=== PATIENT | male | born 1960 | race Hispanic/Latino ===

== ENCOUNTER 2021-01-21 11:39 | Outpatient (CLI) | payer OTHER ==
[2021-01-21] MEDS ORDERED: IPRATROPIUM 0.02% NEBU 2.5 ML IH ONE (12:39)
[2021-01-21] MEDS ORDERED: ALBUTEROL 2.5 MG/3 ML NEBU IH ONE (12:40)
== END 2021-01-21 11:40 | disposition home or self-care (01) ==
LOC: PF 11:39
PROVIDERS: ATTEND Internal Medicine
DX: J44.9 Chronic obstructive pulmonary disease, unspecified (principal); I25.10 Atherosclerotic heart disease of native coronary artery without angina pectoris; F32.9 Major depressive disorder, single episode, unspecified; I10 Essential (primary) hypertension
CPT/HCPCS: 94060; 94640; A9270